=== PATIENT | male | born 1965 | race Caucasian/White ===

== ENCOUNTER → 2017-09-26 | Outpatient (CLI) | payer OTHER ==
[~2017-09-26] MED LIST: ASPIRIN325 PO; CELEBREX 200 M200 M1 PO; COLACE100 MG PO; CRESTOR40 MG PO; FENOFIBRATE160 MG PO; FISH OIL 1,001000 M1 PO; GLUCOPHAGE500 MG PO; HYDROCHLOROTH12.5 M1 PO; HYDROCODONE-AP1 EAC6 PO; JANUVIA100 MG PO; JARDIANCE10 MG PO; LASIX 40 MG TAB40 M2 PO; LISINOPRIL10 MG PO; METAMUCIL1 EAC1 PO; METFORMIN HCL500 MG PO; NEURONTIN 300300 M1 PO; PERCOCET PO; POTASSIUM CHLO10 ME1 PO; PRINIVIL20 MG PO; TYLENOL325 MG PO; ULORIC80 MG PO; VITAMIN D32000 UNIT PO; XARELTO10 MG PO; ZANTAC 150MG T150 MG PO; ZOCOR40 MG PO
== END ==
LOC: M.RAD 09:58
DX: J06.9 Acute upper respiratory infection, unspecified (principal)

== ENCOUNTER → 2017-10-04 | Outpatient (CLI) | payer OTHER ==
--- NOTE | 2017-10-04 16:36 | 2DMMODE ---
[place] [address] 2 D/M-MODE ECHOCARDIOGRAM Name: JUAN SANTILLAN Room: [facility]#: [id number] Admission: 10/04/17 Attend Phys: Oskar Sloan Discharge: Date of : 63 Date of Service: 10/04/17 1636 Report #: [id number] THIS REPORT FOR: //name// APPROVED REPORT Study performed: 10/04/2017 15:01:03 EXAM: Comprehensive 2D, Doppler, and color-flow Echocardiogram Patient Location: Out-Patient Status: routine BSA: 2.58 HR: 90 bpm BP: 120/72 mmHg Other Information Study Quality: Fair Indications Enlarged Heart 2D Dimensions LVEF(%): 72.69 (>50%) IVSd: 15.14 (7-11mm) LVOT Diam: 21.64 (18-24mm) LVDd: 52.02 mm PWd: 12.22 (7-11mm) Ascending Ao: 29.69 (22-36mm) LVDs: 30.14 (25-40mm) Aortic Root: 29.77 mm Reich's LVEF: 72.69 % Volumes Left Atrial Volume (Systole) LA ESV Index: 14.70 mL/m2 Aortic Valve AoV Peak Thom.: 1.40 m/s AO Peak Gr.: 7.83 mmHg LVOT Max P.61 mmHg AO Mean Gr.: 4.79 mmHg LVOT Mean P.65 mmHg LVOT Max V: 0.95 m/s AO V2 VTI: 20.18 cm LVOT Mean V: 0.59 m/s ADEN (VTI): 2.76 cm2 LVOT V1 VTI: 15.16 cm Mitral Valve E/A Ratio: 0.79 MV Decel. Time: 271.42 [place] [address] 2 D/M-MODE ECHOCARDIOGRAM Name: JUAN SANTILLAN Room: [facility]#: [id number] Admission: 10/04/17 Attend Phys: Oskar Sloan Discharge: Date of : 63 Date of Service: 10/04/17 1636 Report #: [id number] MV E Max Thom.: 0.51 m/s MV PHT: 78.71 ms MVA (PHT): 2.79 cm2 TDI E/Lateral E': 7.29 E/Medial E': 7.29 Medial E' Thom.: 0.07 m/s Lateral E' Thom.: 0.07 m/s Pulmonary Valve PV Peak Thom.: 0.97 m/s PV Peak Gr.: 3.78 mmHg Left Ventricle Left ventricle is borderline dilated. There is normal LV segmental wall motion. Mild concentric left ventricular hypertrophy. Left ventricular systolic function is normal. The left ventricular ejection fraction is within the normal range. LVEF is 50%. Grade I - abnormal relaxation pattern. Right Ventricle The right ventricle is normal size. The right ventricular systolic function is normal. Atria The left atrium size is normal. The right atrium size is normal. Aortic Valve The aortic valve is normal in structure. No aortic regurgitation is present. There is no aortic valvular stenosis. Mitral Valve The mitral valve is normal in structure. There is no mitral valve regurgitation noted. No evidence of mitral valve stenosis. Tricuspid Valve The tricuspid valve is normal in structure. There is no tricuspid valve regurgitation noted. Pulmonic Valve The pulmonary valve is normal in structure. There is no pulmonic valvular regurgitation. Great Vessels The aortic root is normal in size. IVC is normal in size and collapses with >50% [place] [address] 2 D/M-MODE ECHOCARDIOGRAM Name: JUAN SANTILLAN Room: [facility]#: [id number] Admission: 10/04/17 Attend Phys: Oskar Sloan Discharge: Date of : 63 Date of Service: 10/04/17 1636 Report #: [id number] Pericardium There is no pericardial effusion. <Conclusion> Left ventricle is borderline dilated. Mild concentric left ventricular hypertrophy. There is normal LV segmental wall motion. LVEF is 50%. Grade I - abnormal relaxation pattern. There is no aortic valvular stenosis. No aortic regurgitation is present. No evidence of mitral valve stenosis. There is no mitral valve regurgitation noted. There is no tricuspid valve regurgitation noted. The tricuspid valve is normal in structure. There is no pericardial effusion. <ELECTRONICALLY SIGNED> By: Jacinto Molina MD, FACC 10/04/17 1636 1636 1636 Jacinto Molina MD, FACC /INF
== END ==
LOC: M.CRD 14:28
DX: I51.7 Cardiomegaly (principal)

== ENCOUNTER 2018-04-24 15:56 | Emergency (ER) | payer OTHER ==
[~2018-04-24] VITALS: Ht 177.8 cm; Wt 158.8 kg
[~2018-04-24 15:56] MED LIST changes: -CRESTOR40 MG PO; -FENOFIBRATE160 MG PO; -HYDROCHLOROTH12.5 M1 PO; -HYDROCODONE-AP1 EAC6 PO; -JANUVIA100 MG PO; -JARDIANCE10 MG PO; -LASIX 40 MG TAB40 M2 PO; -METFORMIN HCL500 MG PO; -PRINIVIL20 MG PO; -ZANTAC 150MG T150 MG PO
[2018-04-24] MEDS ORDERED: JARDIANCE10 MG PO (16:12)
[2018-04-24] MEDS ORDERED: LASIX 40 MG TAB40 M2 PO (16:12)
[2018-04-24] MEDS ORDERED: PRINIVIL20 MG PO (16:13)
[2018-04-24] MEDS ORDERED: ZANTAC 150MG T150 MG PO (16:13)
[2018-04-24] MEDS ORDERED: CELEBREX 200 M200 M1 PO (16:14)
[2018-04-24] MEDS ORDERED: FENOFIBRATE160 MG PO (16:14)
[2018-04-24] MEDS ORDERED: CRESTOR40 MG PO (16:14)
[2018-04-24] MEDS ORDERED: METFORMIN HCL500 MG PO (16:15)
[2018-04-24] MEDS ORDERED: HYDROCHLOROTH12.5 M1 PO (16:15)
[2018-04-24] MEDS ORDERED: JANUVIA100 MG PO (16:15)
[2018-04-24] MEDS ORDERED: HYDROCODONE-AP1 EAC6 PO (16:51)
[2018-04-24 17:14] VITALS: BP 123/75
== END 2018-04-24 17:15 | disposition home or self-care (01) ==
LOC: M.ERS 15:56
DX: M84.474A Pathological fracture, right foot, initial encounter for fracture (principal); I10 Essential (primary) hypertension; E78.00 Pure hypercholesterolemia, unspecified; G47.33 Obstructive sleep apnea (adult) (pediatric); E11.9 Type 2 diabetes mellitus without complications

== ENCOUNTER → 2018-05-09 | Outpatient (CLI) | payer OTHER ==
[~2018-05-09] MED LIST changes: +CRESTOR40 MG PO; +FENOFIBRATE160 MG PO; +HYDROCHLOROTH12.5 M1 PO; +HYDROCODONE-AP1 EAC6 PO; +JANUVIA100 MG PO; +JARDIANCE10 MG PO; +LASIX 40 MG TAB40 M2 PO; +METFORMIN HCL500 MG PO; +PRINIVIL20 MG PO; +ZANTAC 150MG T150 MG PO
== END ==
LOC: M.ULTRA 07:30
DX: K76.0 Fatty (change of) liver, not elsewhere classified (principal); R74.8 Abnormal levels of other serum enzymes

== ENCOUNTER → 2018-05-26 | Outpatient (CLI) | payer OTHER | LOC: M.CT 07:18 | DX: K76.0 Fatty (change of) liver, not elsewhere classified (principal); R93.5 Abnormal findings on diagnostic imaging of other abdominal regions, including retroperitoneum; N28.89 Other specified disorders of kidney and ureter ==

== ENCOUNTER 2019-01-07 14:59 | Emergency (ER) | payer OTHER ==
[~2019-01-07] VITALS: Ht 175.3 cm; Wt 136.1 kg
[2019-01-07] MEDS ORDERED: VITAMIN D32000 UNI1 PO (15:14)
[2019-01-07] MEDS ORDERED: TRULICITY0.75 MG/0. SUBQ (15:14)
[2019-01-07 16:51] VITALS: BP 110/65
== END 2019-01-07 16:52 | disposition home or self-care (01) ==
LOC: M.ERS 14:59
DX: S92.354A Nondisplaced fracture of fifth metatarsal bone, right foot, initial encounter for closed fracture (principal); S92.341K Displaced fracture of fourth metatarsal bone, right foot, subsequent encounter for fracture with nonunion; I10 Essential (primary) hypertension; E78.00 Pure hypercholesterolemia, unspecified; E11.9 Type 2 diabetes mellitus without complications; G47.33 Obstructive sleep apnea (adult) (pediatric); X50.1XXA Overexertion from prolonged static or awkward postures, initial encounter; Y92.89 Other specified places as the place of occurrence of the external cause; Y93.01 Activity, walking, marching and hiking; Y99.8 Other external cause status

== ENCOUNTER → 2019-06-05 | Outpatient (CLI) | payer OTHER ==
[~2019-06-05] MED LIST changes: +TRULICITY0.75 MG/0. SUBQ; +VITAMIN D32000 UNI1 PO
== END ==
LOC: M.CRD 14:54
DX: R79.89 Other specified abnormal findings of blood chemistry (principal)

== ENCOUNTER → 2020-01-01 | Outpatient (CLI) | payer OTHER | LOC: M.CT 07:58 | PROVIDERS: ATTEND Family Medicine | DX: Z13.6 Encounter for screening for cardiovascular disorders (principal) ==

== ENCOUNTER → 2020-02-18 | Outpatient (CLI) | payer OTHER | LOC: M.LAB 16:13 | PROVIDERS: ATTEND Radiology Radiation Oncology | DX: C61 Malignant neoplasm of prostate (principal) ==

== ENCOUNTER → 2020-03-26 | Outpatient (CLI) | payer OTHER | LOC: M.MRI 03-13 16:30 | PROVIDERS: ATTEND Radiology Radiation Oncology | DX: C61 Malignant neoplasm of prostate (principal) ==

== ENCOUNTER → 2020-06-30 | Outpatient (CLI) | payer OTHER | LOC: M.ULTRA 16:08 | PROVIDERS: ATTEND Nurse Practitioner | DX: M79.662 Pain in left lower leg (principal) ==

== ENCOUNTER → 2020-08-21 | Outpatient (CLI) | payer OTHER ==
[2020-08-21 16:36] LABS: ABSOLUTE BASOPHILS 0.1 thou/uL (0.0-0.2); ABSOLUTE EOSINOPHILS 0.1 thou/uL (0.0-0.7); ABSOLUTE LYMPHOCYTES 1.9 thou/uL (0.8-5.3); ABSOLUTE MONOCYTES 0.6 thou/uL (0.0-1.2); ABSOLUTE NEUTROPHILS 4.2 thou/uL (1.6-8.1); BASOPHILS 1.3 %; EOSINOPHILS 1.6 %; HEMATOCRIT 43.2 % (42.0-52.0); HEMOGLOBIN 14.9 gm/dL (14.0-18.0); LYMPHOCYTES 27.2 %; MCHC 34.5 g/dL (28.0-37.0); MCV 89.9 fL (80.0-100.0); MONOCYTES 8.9 %; MPV 8.1 fl. (7.2-11.1); NUCLEATED RBCS 0 /100WBC; PLATELET COUNT* 202 thou/uL (150-400); WBC 6.8 thou/uL (4.0-11.0)
[2020-08-21 16:51] LABS: ALBUMIN 3.9 g/dL (3.4-5.0); CALCIUM 9.6 mg/dL (8.5-10.1); CREATININE 1.1 mg/dL (0.6-1.3); POTASSIUM 4.3 mmol/L (3.5-5.1); TOTAL BILIRUBIN 0.3 mg/dL (<0.1-1.0); TOTAL PROTEIN 7.6 g/dL (6.4-8.2)
== END ==
LOC: M.LAB 16:08
PROVIDERS: ATTEND Radiology Radiation Oncology
DX: C61 Malignant neoplasm of prostate (principal)

== ENCOUNTER → 2020-08-29 | Outpatient (CLI) | payer OTHER ==
--- NOTE | 2020-08-30 13:46 | ONC ---
[place] [address] RADIATION ONCOLOGY NOTE Name: JAUN SANTILLAN Room: [facility]#: [id number] Admission: 08/29/20 Attend Phys: Rell Nunez MD Discharge: Date of : 63 Report #: [id number] THIS REPORT FOR: cc: Oskar Sloan Vincent R. DO ~ Keleti, Daniel MD Cc: Dr. Oskar Morris MD DATE OF SERVICE: 08/29/2020 RADIATION ONCOLOGY FOLLOWUP NOTE REFERRING PHYSICIANS: Include Dr. Oskar Sloan, Dr. Ovidio Ramos, Dr. Israel Mckeon, Dr. Roscoe Lee, and Pam Morris MD. PRIMARY SITE AND HISTOPATHOLOGY: The patient received stereotactic body radiation therapy for his prostate cancer that was delivered in 5 fractions and was completed on 05/29/2020. His PSA in 10/2019 was 7.0. He also had a PSA checked by his referring physicians on 04/24/2020 when it was 3.4. His [place] score was 3+3 equals 6 at his prostate biopsy on 01/10/2020. INTERVAL NOTE: The patient takes 0.4 mg tamsulosin per day and he does feel like that helps with his urinary frequency and helping to empty his bladder, though he still feels like he is not fully emptying his bladder. He has nocturia about 2-5 times a night. He had some mild dysuria after he completed the stereotactic body radiation therapy and that resolved around 08/16/2020. He has regular bowel movements up to 3 times a day. He denied having any bright red blood per rectum. He has very brief episodes of intermittent radiating pain to the groin area on the left side and also the calf muscle about 2-3 times a week and it lasts for a very short while. He does have erectile dysfunction. MEDICATIONS: Celebrex, Trulicity, Lasix, hydrochlorothiazide, lisinopril, metformin, Crestor, and Flomax. SOCIAL HISTORY: Cigarettes: he was a former smoker and his chart indicates he may [place] [address] RADIATION ONCOLOGY NOTE Name: JUAN SANTILLAN Room: [facility]#: [id number] Admission: 08/29/20 Attend Phys: Rell Nunez MD Discharge: Date of : 63 Report #: [id number] PHYSICAL EXAMINATION: VITAL SIGNS: The patient weighed 346 pounds on 08/29/2020. He weighed 345 pounds on 05/29/2020, On 08/29/2020, blood pressure was 149/86, pulse 95, oxygen saturation was 96%, respirations were 20, temperature 98.6 degrees Fahrenheit. LYMPH NODES: He had no palpable cervical or supraclavicular lymphadenopathy. HEART: Had a regular rate and rhythm without murmur. LUNGS: were clear to auscultation. RECTAL: The prostate was not enlarged. He was guaiac negative using [employer] [place] [employer] cards from lot #[id number] that expires in 03/2022 using a [employer] developer from lot #[id number] that expires in 05/2022. LABORATORY DATA: From [facility] on 08/21/2020, PSA was 2.1. His sodium was 143, potassium 4.3 , BUN 27, creatinine 1.1 and white blood cell count was 6.8, hemoglobin 14.9, platelets were 202,000. ASSESSMENT AND PLAN: 1. History of prostate cancer- There is no evidence of prostate cancer at this time. A PSA will be ordered in about 6 months and the patient will be asked to schedule a follow up appointment to see me afterwards. 2. Urinary hesitancy- The tamsulosin helps the patient's urinary hesitancy. He has some urinary hesitancy so that dose will be increased from 0.4 mg per day to 0.8 mg per day and that was refilled for the patient. 3. Erectile dysfunction- The patient was given a prescription for Viagra for erectile dysfunction. 4. Hyperlipidemia- The patient takes Crestor and that is managed by his referring physicians. 5. Diabetes- The patient takes metformin and that is managed by his referring physicians. Thank you for allowing me to participate in the care of this patient. <ELECTRONICALLY SIGNED> By: Rell Nunez MD 08/30/20 1346 [id number] Nunez MD /nt
== END ==
LOC: M.RTH 09:40
PROVIDERS: ATTEND Radiology Radiation Oncology
DX: R39.11 Hesitancy of micturition (principal); N52.9 Male erectile dysfunction, unspecified; E78.5 Hyperlipidemia, unspecified; E11.9 Type 2 diabetes mellitus without complications; Z85.46 Personal history of malignant neoplasm of prostate

== ENCOUNTER 2020-12-06 14:30 | Emergency (ER) | payer OTHER ==
[~2020-12-06] VITALS: Ht 177.8 cm; Wt 156.5 kg
[2020-12-06] MEDS ORDERED: FLOMAX0.4 MG PO (14:55)
[2020-12-06 16:36] VITALS: BP 137/57
== END 2020-12-06 16:37 | disposition home or self-care (01) ==
LOC: M.ERS 14:30
DX: S50.11XA Contusion of right forearm, initial encounter (principal); E11.9 Type 2 diabetes mellitus without complications; I10 Essential (primary) hypertension; Z85.46 Personal history of malignant neoplasm of prostate; E66.9 Obesity, unspecified; Z68.42 Body mass index [BMI] 45.0-49.9, adult; W01.0XXA Fall on same level from slipping, tripping and stumbling without subsequent striking against object, initial encounter; Y93.89 Activity, other specified; Y92.89 Other specified places as the place of occurrence of the external cause; Y99.8 Other external cause status

== ENCOUNTER → 2021-04-22 | Outpatient (CLI) | payer OTHER ==
[~2021-04-22] MED LIST changes: +EYE MULTIVITAM1 EAC1 PO; -FISH OIL 1,001000 M1 PO; +FLOMAX0.4 MG PO; +LOVAZA1000 MG PO; -TRULICITY0.75 MG/0. SUBQ; +TRULICITY1.5 MG/0.5 SUBQ
== END ==
LOC: M.PC 09:21
PROVIDERS: ATTEND Physical Medicine & Rehabilitation
DX: M51.36 Other intervertebral disc degeneration, lumbar region (principal); M47.816 Spondylosis without myelopathy or radiculopathy, lumbar region; M48.061 Spinal stenosis, lumbar region without neurogenic claudication

== ENCOUNTER 2021-04-27 04:53 | Emergency (ER) | payer OTHER ==
[~2021-04-27] VITALS: Ht 177.8 cm; Wt 156.5 kg
[2021-04-27 05:02] LABS: URINE BILIRUBIN NEGATIVE (Negative); URINE BLOOD 3+ (Negative); URINE CLARITY CLEAR; URINE COLOR YELLOW; URINE GLUCOSE-RANDOM 2+ (Negative); URINE KETONES 1+ (Negative); URINE LEUKOCYTES-REFLEX NEGATIVE (Negative); URINE NITRITE-REFLEX NEGATIVE (Negative); URINE PROTEIN NEGATIVE (Negative); URINE SPECIFIC GRAVITY >= 1.030 (1.005-1.030); URINE UROBILINOGEN 0.2 E.U./dl (0.2-1.0)
[2021-04-27 05:25] LABS: ABSOLUTE EOSINOPHILS 0.1 thou/uL (0.0-0.7); ABSOLUTE MONOCYTES 0.5 thou/uL (0.0-1.2); ABSOLUTE NEUTROPHILS 3.5 thou/uL (1.6-8.1); BASOPHILS 0.7 %; EOSINOPHILS 1.6 %; HEMATOCRIT 39.7 % (42.0-52.0); HEMOGLOBIN 13.6 gm/dL (14.0-18.0); MCH 30.4 pg (26.0-34.0); MCHC 34.3 g/dL (28.0-37.0); MCV 88.5 fL (80.0-100.0); MPV 8.2 fl. (7.2-11.1); NUCLEATED RBCS 0 /100WBC; PLATELET COUNT* 158 thou/uL (150-400); POLYS 67.7 %; RBC 4.49 mil/uL (4.50-6.00); RDW-CV 13.5 % (10.5-14.5); WBC 5.1 thou/uL (4.0-11.0)
[2021-04-27 05:30] LABS: CALCIUM 8.8 mg/dL (8.5-10.1); CREATININE 1.1 mg/dL (0.6-1.3); POTASSIUM 3.9 mmol/L (3.5-5.1)
[2021-04-27 05:34] LABS: ALBUMIN 3.7 g/dL (3.4-5.0); TOTAL BILIRUBIN 0.4 mg/dL (<0.1-1.0)
[2021-04-27 05:49] LABS: BACTERIA-REFLEX 1-9 Few /HPF (None Seen); CASTS None Seen /LPF (None Seen); MUCUS 4-6 Moderate strn/LPF (None Seen); SQUAMOUS 4-10 Moderate /LPF (0-3); URINE WBC-REFLEX 0-5 Rare /HPF (0-5)
[2021-04-27 05:50] LABS: AMORPHOUS URATES Few /LPF (None Seen); URIC ACID CRYSTALS 0-3 Few /LPF (None Seen)
[2021-04-27] MEDS ORDERED: HYDROCODON-ACE1 EAC8 PO (06:26)
[2021-04-27] MEDS ORDERED: ZOFRAN ODT4 MG PO (06:26)
[2021-04-27 07:07] VITALS: BP 140/82
== END 2021-04-27 07:08 | disposition home or self-care (01) ==
LOC: M.ERS 04:53
PROVIDERS: Emergency Medicine
DX: N20.0 Calculus of kidney (principal); E11.9 Type 2 diabetes mellitus without complications; I10 Essential (primary) hypertension; E66.9 Obesity, unspecified; Z79.899 Other long term (current) drug therapy; Z85.46 Personal history of malignant neoplasm of prostate; Z68.42 Body mass index [BMI] 45.0-49.9, adult

== ENCOUNTER → 2021-05-04 | Outpatient (CLI) | payer OTHER ==
[~2021-05-04] MED LIST changes: +HYDROCODON-ACE1 EAC8 PO; +ZOFRAN ODT4 MG PO
== END | disposition home or self-care (01) ==
LOC: M.PC 09:29
PROVIDERS: ATTEND Physical Medicine & Rehabilitation
DX: M54.59 Other low back pain (principal); M47.816 Spondylosis without myelopathy or radiculopathy, lumbar region; M51.36 Other intervertebral disc degeneration, lumbar region; M47.896 Other spondylosis, lumbar region; M48.061 Spinal stenosis, lumbar region without neurogenic claudication; I11.0 Hypertensive heart disease with heart failure; I50.30 Unspecified diastolic (congestive) heart failure; E11.9 Type 2 diabetes mellitus without complications; Z98.890 Other specified postprocedural states; Z85.46 Personal history of malignant neoplasm of prostate; Z79.899 Other long term (current) drug therapy

== ENCOUNTER → 2021-05-18 | Outpatient (CLI) | payer OTHER | LOC: M.PC 09:30 | PROVIDERS: ATTEND Physical Medicine & Rehabilitation | DX: M47.816 Spondylosis without myelopathy or radiculopathy, lumbar region (principal); M51.26 Other intervertebral disc displacement, lumbar region; M48.061 Spinal stenosis, lumbar region without neurogenic claudication; C61 Malignant neoplasm of prostate; I11.0 Hypertensive heart disease with heart failure; I50.9 Heart failure, unspecified; E11.9 Type 2 diabetes mellitus without complications; E78.5 Hyperlipidemia, unspecified; E66.01 Morbid (severe) obesity due to excess calories; Z96.659 Presence of unspecified artificial knee joint ==